=== PATIENT | female | born 1965 | race African-American/Black ===

== ENCOUNTER 2021-08-27 14:32 | Inpatient (IN) ==
[2021-08-27 15:51] LABS: Basophils # 0.1 10*3/uL (0.0-0.2); Basophils % 1.1 % (0.0-0.8); Eosinophils % 0.4 % (0.00-10.9); Hematocrit 36.2 VOL% (35.7-47.0); Hemoglobin 11.3 GM/DL (12.0-16.0); Immature Granulocytes % 0.4 %; Immature Granulocytes Absolute 0.02 #; Lymphocytes # 1.7 10*3/uL (1.4-4.0); Mean Corpuscular HGB Conc 31.2 GM/DL (32-36); Mean Corpuscular Volume 80.6 FL (87-102); Mean Platelet Volume 9.8 FL (9.6-12.0); Monocytes % 6.4 % (1.7-12.7); Neutrophils % 54.7 % (38.7-73.9); Platelet Count 166 T/CUMM (130-400); Red Blood Count 4.49 MC/CUMM (3.8-5.5); Red Cell Distribution Width 18.9 % (9.3-17.3); White Blood Count 4.7 T/CUMM (4-12)
[2021-08-27 16:11] LABS: Albumin 3.1 G/DL (3.4-5.0); Bilirubin,Total 1.1 MG/DL (0.20-1.00); Calcium 8.2 MG/DL (8.5-10.1); Osmolality,Calculated 275.2 MOS/KG (273-304); Potassium 4.9 MMOL/L (3.5-5.1); Total Protein 6.8 G/DL (6.4-8.2)
[2021-08-27] MEDS ORDERED: GLUCAGON 1 MG VIAL IM PRN (16:48)
[2021-08-27] MEDS ORDERED: DEXTROSE 50% 25 GM/50 ML SYRINGE IV PRN (16:48)
[2021-08-27] MEDS ORDERED: hydrALAZINE 20 MG/1 ML VIAL IV PRN (16:48)
[2021-08-27 16:59] LABS: Lymphocytes 33 % (20-55); Nucleated Red Blood Cells 1 (0-5); Reactive Lymphocytes 1+; Segmented Neutrophils 60 % (50-85); Total Cells Counted 100
[2021-08-27] MEDS: ACETAMINOPHEN 325 MG TABLET PO PRN (16:59)
[2021-08-27 17:00] LABS: Anisocytosis 2+; Platelet Estimate Normal; Poikilocytosis 1+
[2021-08-27 17:01] LABS: Hypochromasia 2+; Schistocytes 1+
[2021-08-27] MEDS ORDERED: NICOTINE 14 MG/24 HR PATCH TRANSDERM PRN (17:12)
[2021-08-27] MEDS ORDERED: ALBUTEROL/IPRATROPIUM 3 ML NEB RESP TX PRN (17:14)
[2021-08-27] MEDS: ONDANSETRON 4 MG/2 ML VIAL IV PRN ×2 (17:43→21:36)
[2021-08-27] MEDS: carvediloL 6.25 MG TABLET PO SCH (20:58)
[2021-08-27] MEDS: HEPARIN 5,000 UNIT/1 ML VIAL SUBCUT SCH (21:01)
[2021-08-28 05:31] LABS: Basophils % 0.8 % (0.0-0.8); Eosinophils % 0.8 % (0.00-10.9); Hematocrit 33.2 VOL% (35.7-47.0); Hemoglobin 10.7 GM/DL (12.0-16.0); Immature Granulocytes % 0.4 %; Immature Granulocytes Absolute 0.02 #; Lymphocytes # 1.5 10*3/uL (1.4-4.0); Lymphocytes % 32.5 % (21.3-54.2); Mean Corpuscular HGB Conc 32.2 GM/DL (32-36); Mean Corpuscular Volume 78.7 FL (87-102); Mean Platelet Volume 10.2 FL (9.6-12.0); Monocytes % 6.6 % (1.7-12.7); NRBC # 0.02 10*3/uL; Neutrophils % 58.9 % (38.7-73.9); Platelet Count 164 T/CUMM (130-400); Red Blood Count 4.22 MC/CUMM (3.8-5.5); Red Cell Distribution Width 18.3 % (9.3-17.3); White Blood Count 4.7 T/CUMM (4-12)
[2021-08-28 05:55] LABS: Anisocytosis 2+; Burr Cells 1+; Osmolality,Calculated 270.7 MOS/KG (273-304); Platelet Estimate Normal; Poikilocytosis Slight; Potassium 4.4 MMOL/L (3.5-5.1); Target Cells 1+
[2021-08-28] MEDS: carvediloL 6.25 MG TABLET PO SCH (09:37)
[2021-08-28] MEDS: POLYETHYLENE GLYCOL POWDER 17 GM PACK PO SCH (09:37)
[2021-08-28] MEDS: HEPARIN 5,000 UNIT/1 ML VIAL SUBCUT SCH (09:37)
[2021-08-28 14:45] LABS: Hepatitis B Core IgM Quant 0.15 Index; Hepatitis B Surface Ag Quant < 0.10 Index; Hepatitis B Surface Ag Result Non-Reactive (NonReactive); Hepatitis C Virus Ab Quant 0.04 Index; Hepatitis C Virus Ab Result Non-Reactive (NonReactive)
[2021-08-28] MEDS: hydrALAZINE 10 MG TABLET PO SCH ×2 (16:04→20:44)
[2021-08-28] MEDS: SEVELAMER CARBONATE 800 MG TABLET PO SCH (16:48)
[2021-08-28] MEDS: ATORVASTATIN 40 MG TABLET PO SCH (20:43)
[2021-08-28] MEDS: APIXABAN 2.5 MG TABLET PO SCH (20:44)
[2021-08-28] MEDS: carvediloL 12.5 MG TABLET PO SCH (20:44)
[2021-08-29] MEDS: LEVOTHYROXINE 50 MCG TABLET PO SCH (06:24)
[2021-08-29] MEDS: SEVELAMER CARBONATE 800 MG TABLET PO SCH ×2 (09:06→17:02)
[2021-08-29] MEDS: carvediloL 12.5 MG TABLET PO SCH ×2 (09:06→21:28)
[2021-08-29] MEDS: LOSARTAN 50 MG TABLET PO SCH (09:07)
[2021-08-29] MEDS: APIXABAN 2.5 MG TABLET PO SCH ×2 (09:07→21:29)
[2021-08-29] MEDS: POLYETHYLENE GLYCOL POWDER 17 GM PACK PO SCH (09:07)
[2021-08-29] MEDS: GABAPENTIN 100 MG CAPSULE PO SCH (09:07)
[2021-08-29] MEDS: hydrALAZINE 10 MG TABLET PO SCH ×3 (09:07→21:29)
[2021-08-29] MEDS: (Fluticasone-Umeclidin-Vilanter [Trelegy Ellipta] 100-62.5-25 mcg INH SCH (09:10)
[2021-08-29] MEDS: ACETAMINOPHEN 325 MG TABLET PO PRN (13:42)
[2021-08-29] MEDS: ATORVASTATIN 40 MG TABLET PO SCH (21:28)
[2021-08-30] MEDS: ACETAMINOPHEN 325 MG TABLET PO PRN ×2 (04:54→15:28)
[2021-08-30] MEDS: LEVOTHYROXINE 50 MCG TABLET PO SCH (05:42)
[2021-08-30 08:14] LABS: Hematocrit 33.6 VOL% (35.7-47.0); Hemoglobin 10.3 GM/DL (12.0-16.0); Immature Granulocytes % 0.5 %; Immature Granulocytes Absolute 0.02 #; Lymphocytes # 1.1 10*3/uL (1.4-4.0); Lymphocytes % 27.3 % (21.3-54.2); Mean Corpuscular HGB Conc 30.7 GM/DL (32-36); Mean Corpuscular Volume 81.8 FL (87-102); Monocytes % 8.2 % (1.7-12.7); Platelet Count 153 T/CUMM (130-400); Red Blood Count 4.11 MC/CUMM (3.8-5.5); Red Cell Distribution Width 19.5 % (9.3-17.3)
[2021-08-30 08:29] LABS: Calcium 8.2 MG/DL (8.5-10.1); Osmolality,Calculated 269.5 MOS/KG (273-304); Potassium 4.9 MMOL/L (3.5-5.1)
[2021-08-30 08:32] LABS: INR 1.2; PT Patient Result 13.3 SECS (10.5-12.0)
[2021-08-30] MEDS: APIXABAN 2.5 MG TABLET PO SCH (10:03)
[2021-08-30] MEDS: carvediloL 12.5 MG TABLET PO SCH ×2 (10:38→20:43)
[2021-08-30] MEDS: LOSARTAN 50 MG TABLET PO SCH (10:38)
[2021-08-30] MEDS: GABAPENTIN 100 MG CAPSULE PO SCH (10:38)
[2021-08-30] MEDS: hydrALAZINE 10 MG TABLET PO SCH ×3 (10:38→20:43)
[2021-08-30] MEDS: SEVELAMER CARBONATE 800 MG TABLET PO SCH ×2 (10:38→17:45)
[2021-08-30] MEDS: POLYETHYLENE GLYCOL POWDER 17 GM PACK PO SCH (10:38)
[2021-08-30] MEDS: (Fluticasone-Umeclidin-Vilanter [Trelegy Ellipta] 100-62.5-25 mcg INH SCH (10:44)
[2021-08-30] MEDS: ATORVASTATIN 40 MG TABLET PO SCH (20:43)
[2021-08-31] MEDS: LEVOTHYROXINE 50 MCG TABLET PO SCH (05:30)
[2021-08-31 05:44] LABS: Basophils % 0.8 % (0.0-0.8); Eosinophils % 0.8 % (0.00-10.9); Hematocrit 34.3 VOL% (35.7-47.0); Immature Granulocytes % 0.3 %; Immature Granulocytes Absolute 0.01 #; Lymphocytes % 26.8 % (21.3-54.2); Mean Corpuscular HGB Conc 32.1 GM/DL (32-36); Mean Corpuscular Volume 81.1 FL (87-102); Mean Platelet Volume 9.8 FL (9.6-12.0); Monocytes % 5.4 % (1.7-12.7); NRBC # 0.03 10*3/uL; Neutrophils % 65.9 % (38.7-73.9); Platelet Count 130 T/CUMM (130-400); Red Blood Count 4.23 MC/CUMM (3.8-5.5); Red Cell Distribution Width 19.4 % (9.3-17.3); White Blood Count 3.9 T/CUMM (4-12)
[2021-08-31 05:57] LABS: Calcium 8.1 MG/DL (8.5-10.1); Osmolality,Calculated 268.8 MOS/KG (273-304)
[2021-08-31 06:01] LABS: Potassium 6.1 MMOL/L (3.5-5.1)
[2021-08-31] MEDS ORDERED: SODIUM BICARBONATE 50 MEQ/50 ML VIAL IV ONE (06:10)
[2021-08-31] MEDS ORDERED: SODIUM POLYSTYRENE SULFATE 15 GM/60 ML BOTTLE PO ONE (06:10)
[2021-08-31 07:27] LABS: Free T4 (Free Thyroxine) 0.86 NG/DL (0.76-1.46)
[2021-08-31] MEDS: LOSARTAN 50 MG TABLET PO SCH (08:18)
[2021-08-31] MEDS: GABAPENTIN 100 MG CAPSULE PO SCH (08:18)
[2021-08-31] MEDS: hydrALAZINE 10 MG TABLET PO SCH ×3 (08:18→20:53)
[2021-08-31] MEDS: carvediloL 12.5 MG TABLET PO SCH ×2 (08:19→20:53)
[2021-08-31] MEDS: POLYETHYLENE GLYCOL POWDER 17 GM PACK PO SCH (08:19)
[2021-08-31] MEDS: (Fluticasone-Umeclidin-Vilanter [Trelegy Ellipta] 100-62.5-25 mcg INH SCH (08:19)
[2021-08-31] MEDS: SEVELAMER CARBONATE 800 MG TABLET PO SCH ×2 (08:19→16:07)
[2021-08-31] MEDS ORDERED: BISACODYL 5 MG TABLET PO ONE (12:01)
[2021-08-31] MEDS: ATORVASTATIN 40 MG TABLET PO SCH (20:53)
[2021-09-01] MEDS: LEVOTHYROXINE 50 MCG TABLET PO SCH (06:03)
[2021-09-01 07:47] LABS: Basophils % 1.1 % (0.0-0.8); Eosinophils % 0.8 % (0.00-10.9); Hematocrit 34.2 VOL% (35.7-47.0); Hemoglobin 10.8 GM/DL (12.0-16.0); Immature Granulocytes % 0.3 %; Immature Granulocytes Absolute 0.01 #; Lymphocytes % 26.8 % (21.3-54.2); Mean Corpuscular HGB Conc 31.6 GM/DL (32-36); Mean Platelet Volume 10.3 FL (9.6-12.0); Monocytes % 3.7 % (1.7-12.7); NRBC # 0.02 10*3/uL; Neutrophils % 67.3 % (38.7-73.9); Platelet Count 146 T/CUMM (130-400); Red Blood Count 4.17 MC/CUMM (3.8-5.5); Red Cell Distribution Width 19.5 % (9.3-17.3); White Blood Count 3.8 T/CUMM (4-12)
[2021-09-01] MEDS: ACETAMINOPHEN 325 MG TABLET PO PRN (07:49)
[2021-09-01 08:03] LABS: Calcium 8.4 MG/DL (8.5-10.1); Osmolality,Calculated 266.4 MOS/KG (273-304); Potassium 3.6 MMOL/L (3.5-5.1)
[2021-09-01] MEDS: SEVELAMER CARBONATE 800 MG TABLET PO SCH ×2 (09:30→16:10)
[2021-09-01] MEDS: carvediloL 12.5 MG TABLET PO SCH ×2 (10:35→20:28)
[2021-09-01] MEDS: LOSARTAN 50 MG TABLET PO SCH (10:35)
[2021-09-01] MEDS: hydrALAZINE 10 MG TABLET PO SCH ×3 (10:35→20:28)
[2021-09-01] MEDS: GABAPENTIN 100 MG CAPSULE PO SCH (10:35)
[2021-09-01] MEDS: POLYETHYLENE GLYCOL POWDER 17 GM PACK PO SCH (10:36)
[2021-09-01] MEDS ORDERED: TISSUE ADHESIVE 1 EACH APPLICATOR TOP ONE (11:56)
[2021-09-01] MEDS: (Fluticasone-Umeclidin-Vilanter [Trelegy Ellipta] 100-62.5-25 mcg INH SCH (13:44)
[2021-09-01] MEDS: ATORVASTATIN 40 MG TABLET PO SCH (20:27)
[2021-09-02] MEDS: LEVOTHYROXINE 50 MCG TABLET PO SCH (06:01)
[2021-09-02 08:47] LABS: Calcium 8.2 MG/DL (8.5-10.1); Osmolality,Calculated 271.2 MOS/KG (273-304); Potassium 4.6 MMOL/L (3.5-5.1)
[2021-09-02] MEDS: carvediloL 12.5 MG TABLET PO SCH (09:28)
[2021-09-02] MEDS: GABAPENTIN 100 MG CAPSULE PO SCH (09:28)
[2021-09-02] MEDS: hydrALAZINE 10 MG TABLET PO SCH (09:28)
[2021-09-02] MEDS: SEVELAMER CARBONATE 800 MG TABLET PO SCH (09:28)
[2021-09-02] MEDS: LOSARTAN 50 MG TABLET PO SCH (09:28)
[2021-09-02] MEDS: POLYETHYLENE GLYCOL POWDER 17 GM PACK PO SCH (09:28)
[2021-09-02] MEDS: (Fluticasone-Umeclidin-Vilanter [Trelegy Ellipta] 100-62.5-25 mcg INH SCH (09:29)
[2021-09-02] MEDS: APIXABAN 2.5 MG TABLET PO SCH (09:31)
[2021-09-02 12:21] VITALS: BP 147/87
== END 2021-09-02 14:45 | disposition home or self-care (01) | DRG 640 ==
LOC: N.ED 14:32 → N.EDINP 14:32 → SUATTDRO 16:45 → N.TELEN 18:13 → SUATTDRO 08-29 12:20
PROVIDERS: ADMIT Emergency Medicine; ATTEND Emergency Medicine

== ENCOUNTER 2021-09-25 12:38 | Inpatient (IN) ==
[2021-09-25 14:20] LABS: Basophils % 0.8 % (0.0-0.8); Eosinophils # 0.1 10*3/uL (0.0-0.87); Eosinophils % 1.5 % (0.00-10.9); Hematocrit 35.9 VOL% (35.7-47.0); Hemoglobin 10.9 GM/DL (12.0-16.0); Immature Granulocytes % 0.4 %; Immature Granulocytes Absolute 0.02 #; Lymphocytes # 1.2 10*3/uL (1.4-4.0); Lymphocytes % 25.3 % (21.3-54.2); Mean Corpuscular HGB Conc 30.4 GM/DL (32-36); Mean Corpuscular Volume 83.5 FL (87-102); Mean Platelet Volume 9.1 FL (9.6-12.0); Monocytes % 7.1 % (1.7-12.7); Neutrophils % 64.9 % (38.7-73.9); Platelet Count 163 T/CUMM (130-400); Red Cell Distribution Width 20.3 % (9.3-17.3); White Blood Count 4.8 T/CUMM (4-12)
[2021-09-25 14:48] LABS: Alanine Aminotransferase < 6 U/L (13-56); Alkaline Phosphatase 102 U/L (45-117); Aspartate Amino Transferase 17 U/L (0-37); Blood Urea Nitrogen 51 MG/DL (7-18); Calcium 9.4 MG/DL (8.5-10.1); Carbon Dioxide 29 MMOL/L (21-32); Estimated Glom Filtration Rate 9 ML/MIN; Glucose 103 MG/DL (74-106); Osmolality,Calculated 286.8 MOS/KG (273-304); Potassium 4.2 MMOL/L (3.5-5.1); Sodium 137 MMOL/L (136-145)
[2021-09-25 16:29] LABS: ABG Base Excess 2.6 MMOL/L (-2.5-2.5); ABG HCO3 26.6 MMOL/L (20-26); ABG Oxygen Saturation 93.2 % (95-100); ABG PCO2 49.1 MM HG (35-48); ABG PH 7.373 (7.35-7.45); ABG PO2 72.9 MM HG (80-95); ABG TCO2 25.9 MMOL/L (23-27)
[2021-09-25] MEDS ORDERED: ONDANSETRON 4 MG/2 ML VIAL IV PRN (16:35)
[2021-09-25] MEDS ORDERED: ACETAMINOPHEN 325 MG TABLET PO PRN (16:35)
[2021-09-25] MEDS ORDERED: GLUCAGON 1 MG VIAL IM PRN (16:35)
[2021-09-25] MEDS ORDERED: hydrALAZINE 20 MG/1 ML VIAL IV PRN (16:35)
[2021-09-25] MEDS ORDERED: guaiFENesin/DM ER 600-30 MG TABLET PO PRN (16:35)
[2021-09-25] MEDS ORDERED: ALBUTEROL 2.5 MG/3 ML NEB RESP TX PRN (16:35)
[2021-09-25] MEDS ORDERED: DEXTROSE 50% 25 GM/50 ML SYRINGE IV PRN (16:35)
[2021-09-25] MEDS ORDERED: AZITHROMYCIN 250 MG TABLET PO SCH (17:00)
[2021-09-25] MEDS: SEVELAMER CARBONATE 800 MG TABLET PO SCH (18:37)
[2021-09-25] MEDS: hydrALAZINE 10 MG TABLET PO SCH (20:14)
[2021-09-25] MEDS: cefTRIAXone 1,000 MG in SODIUM CHLORIDE 0.9% 100 ML IV SCH (20:14)
[2021-09-25] MEDS: AZITHROMYCIN 250 MG TABLET PO SCH (20:14)
[2021-09-25] MEDS: carvediloL 12.5 MG TABLET PO SCH (20:14)
[2021-09-25] MEDS: APIXABAN 2.5 MG TABLET PO SCH (20:14)
[2021-09-25] MEDS: ATORVASTATIN 40 MG TABLET PO SCH (20:14)
[2021-09-25] MEDS ORDERED: HEPARIN 5,000 UNIT/1 ML VIAL SUBCUT SCH (21:00)
[2021-09-26 05:35] LABS: Hemoglobin 10.4 GM/DL (12.0-16.0); Immature Granulocytes % 0.5 %; Immature Granulocytes Absolute 0.02 #; Lymphocytes # 1.1 10*3/uL (1.4-4.0); Lymphocytes % 27.1 % (21.3-54.2); Mean Corpuscular HGB Conc 30.6 GM/DL (32-36); Mean Corpuscular Volume 84.2 FL (87-102); Mean Platelet Volume 9.4 FL (9.6-12.0); Monocytes % 7.1 % (1.7-12.7); Neutrophils % 63.3 % (38.7-73.9); Platelet Count 165 T/CUMM (130-400); Red Blood Count 4.04 MC/CUMM (3.8-5.5); Red Cell Distribution Width 19.8 % (9.3-17.3); White Blood Count 4.2 T/CUMM (4-12)
[2021-09-26] MEDS: LEVOTHYROXINE 50 MCG TABLET PO SCH (05:50)
[2021-09-26 05:59] LABS: Calcium 8.8 MG/DL (8.5-10.1); Osmolality,Calculated 286.7 MOS/KG (273-304); Potassium 4.8 MMOL/L (3.5-5.1)
[2021-09-26] MEDS: AZITHROMYCIN 250 MG TABLET PO SCH (08:31)
[2021-09-26] MEDS: hydrALAZINE 10 MG TABLET PO SCH ×3 (08:31→20:01)
[2021-09-26] MEDS: LOSARTAN 50 MG TABLET PO SCH (08:31)
[2021-09-26] MEDS: APIXABAN 2.5 MG TABLET PO SCH ×2 (08:31→20:02)
[2021-09-26] MEDS: carvediloL 12.5 MG TABLET PO SCH ×2 (08:31→20:02)
[2021-09-26] MEDS: GABAPENTIN 100 MG CAPSULE PO SCH (08:31)
[2021-09-26] MEDS: SEVELAMER CARBONATE 800 MG TABLET PO SCH ×2 (08:31→16:26)
[2021-09-26] MEDS: NON-FORMULARY MEDICATION (Fluticasone-Umeclidin-Vilanter [Trelegy Ellipta] 100-62.5-25 mcg INH SCH (08:32)
[2021-09-26] MEDS: cefTRIAXone 1,000 MG in SODIUM CHLORIDE 0.9% 100 ML IV SCH (20:02)
[2021-09-26] MEDS: ATORVASTATIN 40 MG TABLET PO SCH (20:02)
[2021-09-27 06:26] LABS: Basophils % 0.6 % (0.0-0.8); Eosinophils # 0.1 10*3/uL (0.0-0.87); Eosinophils % 1.1 % (0.00-10.9); Hematocrit 34.8 VOL% (35.7-47.0); Hemoglobin 10.3 GM/DL (12.0-16.0); Immature Granulocytes % 0.7 %; Immature Granulocytes Absolute 0.04 #; Lymphocytes # 1.1 10*3/uL (1.4-4.0); Lymphocytes % 19.6 % (21.3-54.2); Mean Corpuscular HGB Conc 29.6 GM/DL (32-36); Mean Corpuscular Volume 86.8 FL (87-102); Mean Platelet Volume 8.9 FL (9.6-12.0); Monocytes % 6.7 % (1.7-12.7); Neutrophils % 71.3 % (38.7-73.9); Platelet Count 148 T/CUMM (130-400); Red Blood Count 4.01 MC/CUMM (3.8-5.5); Red Cell Distribution Width 19.9 % (9.3-17.3); White Blood Count 5.4 T/CUMM (4-12)
[2021-09-27] MEDS: LEVOTHYROXINE 50 MCG TABLET PO SCH (06:40)
[2021-09-27 06:46] LABS: Albumin 2.7 G/DL (3.4-5.0); Bilirubin,Total 0.8 MG/DL (0.20-1.00); Calcium 8.6 MG/DL (8.5-10.1); Osmolality,Calculated 292.5 MOS/KG (273-304); Potassium 4.4 MMOL/L (3.5-5.1); Total Protein 6.6 G/DL (6.4-8.2)
[2021-09-27] MEDS: SEVELAMER CARBONATE 800 MG TABLET PO SCH ×2 (08:50→16:59)
[2021-09-27] MEDS: hydrALAZINE 10 MG TABLET PO SCH ×3 (08:51→22:24)
[2021-09-27] MEDS: carvediloL 12.5 MG TABLET PO SCH ×2 (08:51→22:25)
[2021-09-27] MEDS: AZITHROMYCIN 250 MG TABLET PO SCH (08:51)
[2021-09-27] MEDS: NON-FORMULARY MEDICATION (Fluticasone-Umeclidin-Vilanter [Trelegy Ellipta] 100-62.5-25 mcg INH SCH (08:52)
[2021-09-27] MEDS: GABAPENTIN 100 MG CAPSULE PO SCH (08:52)
[2021-09-27] MEDS: APIXABAN 2.5 MG TABLET PO SCH (08:52)
[2021-09-27] MEDS: LOSARTAN 50 MG TABLET PO SCH (08:54)
[2021-09-27] MEDS: ATORVASTATIN 40 MG TABLET PO SCH (22:24)
[2021-09-27] MEDS: cefTRIAXone 1,000 MG in SODIUM CHLORIDE 0.9% 100 ML IV SCH (22:25)
[2021-09-28] MEDS: LEVOTHYROXINE 50 MCG TABLET PO SCH (05:48)
[2021-09-28 07:00] LABS: Basophils % 0.6 % (0.0-0.8); Eosinophils # 0.1 10*3/uL (0.0-0.87); Eosinophils % 1.2 % (0.00-10.9); Hematocrit 35.8 VOL% (35.7-47.0); Hemoglobin 10.7 GM/DL (12.0-16.0); Immature Granulocytes % 0.6 %; Immature Granulocytes Absolute 0.03 #; Mean Corpuscular HGB Conc 29.9 GM/DL (32-36); Mean Corpuscular Volume 86.5 FL (87-102); Mean Platelet Volume 9.2 FL (9.6-12.0); Monocytes % 7.1 % (1.7-12.7); Neutrophils % 70.5 % (38.7-73.9); Platelet Count 158 T/CUMM (130-400); Red Blood Count 4.14 MC/CUMM (3.8-5.5); Red Cell Distribution Width 20.3 % (9.3-17.3)
[2021-09-28 07:08] LABS: Albumin 2.9 G/DL (3.4-5.0); Bilirubin,Total 0.4 MG/DL (0.20-1.00); Calcium 8.7 MG/DL (8.5-10.1); Osmolality,Calculated 281.8 MOS/KG (273-304); Potassium 4.6 MMOL/L (3.5-5.1)
[2021-09-28 08:02] VITALS: BP 170/94
[2021-09-28] MEDS: AZITHROMYCIN 250 MG TABLET PO SCH (09:42)
[2021-09-28] MEDS: SEVELAMER CARBONATE 800 MG TABLET PO SCH (09:42)
[2021-09-28] MEDS: GABAPENTIN 100 MG CAPSULE PO SCH (09:42)
[2021-09-28] MEDS: hydrALAZINE 10 MG TABLET PO SCH (09:42)
[2021-09-28] MEDS: LOSARTAN 50 MG TABLET PO SCH (09:42)
[2021-09-28] MEDS: carvediloL 12.5 MG TABLET PO SCH (09:42)
[2021-09-28] MEDS: NON-FORMULARY MEDICATION (Fluticasone-Umeclidin-Vilanter [Trelegy Ellipta] 100-62.5-25 mcg INH SCH (09:44)
== END 2021-09-28 11:07 | disposition home or self-care (01) | DRG 291 ==
LOC: N.ED 12:38 → SUATTDRO 16:35 → N.5E 16:35
PROVIDERS: ADMIT Internal Medicine; ATTEND Internal Medicine Geriatric Medicine